=== PATIENT | female | born 1950 | race Caucasian/White ===

== ENCOUNTER 2024-02-15 18:57 | Inpatient (IN) | payer MEDICARE, BC ==
[~2024-02-15] VITALS: Ht 160 cm; Wt 95.3 kg
[2024-02-15] MEDS ORDERED: LISI20TA30 PO (19:17)
[2024-02-15] MEDS ORDERED: BIMA2.5D5 EACHEYE (19:17)
[2024-02-15] MEDS ORDERED: CABE0.5T2 PO (19:17)
[2024-02-15] MEDS ORDERED: ACET325T53 PO (19:17)
[2024-02-15] MEDS ORDERED: DIVA250T4 PO (19:17)
[2024-02-15] MEDS ORDERED: MAGN500T3 PO (19:17)
[2024-02-15] MEDS ORDERED: CHOL10005 PO (19:17)
[2024-02-15] MEDS ORDERED: METO-357 PO (19:17)
[2024-02-15 19:45] LABS: *BILIRUBIN,URIN NEGATIVE (NEGATIVE); *BLOOD, URINE NEGATIVE (NEGATIVE); *CLARITY,URINE CLEAR (CLEAR); *COLOR,URINE YELLOW (YELLOW); *KETONES,URINE NEGATIVE (NEGATIVE); *PROTEIN,URINE NEGATIVE (NEGATIVE); *UROBILINOGEN,URINE 0.2 E.U./dl (NORMAL); LEUKOCYTE ESTERASE ,URINE TRACE (NEGATIVE); NITRITE, URINE NEGATIVE (NEGATIVE); UGLUCOSE NEGATIVE (NEGATIVE)
[2024-02-15 20:03] LABS: BACTERIA,URINE NONE SEEN /HPF (NONE SEEN); RBC,URINE NONE SEEN /HPF (0-3); SQUAMOUS EPITHELIAL CELL,UR FEW /HPF (NONE SEEN)
[2024-02-15] MEDS ORDERED: ACETAMINOPHEN 325 MG TABLET PO PRN (21:30)
[2024-02-15] MEDS ORDERED: MAGNESIUM HYDROXIDE 30 ML LIQUID UDC PO PRN (21:30)
[2024-02-15] MEDS ORDERED: TEMAZEPAM 7.5 MG CAPSULE PO PRN ×2 (21:30)
[2024-02-15] MEDS ORDERED: CLONAZEPAM 0.5 MG TABLET PO PRN ×2 (21:30)
[2024-02-15] MEDS: BLOOD SUGAR DIAGNOSTIC 1 EACH STRIP VI ONE (22:06)
[2024-02-16 08:02] VITALS: BP 152/73; TEMP 98; O2SAT 98
[2024-02-16] MEDS ORDERED: TEMAZEPAM 7.5 MG CAPSULE PO PRN (08:15)
[2024-02-16] MEDS ORDERED: CLONAZEPAM 0.5 MG TABLET PO PRN (08:15)
[2024-02-16] MEDS: CHOLECALCIFEROL 1,000 UNIT TABLET PO SCH (08:49)
[2024-02-16] MEDS: LISINOPRIL 20 MG TABLET PO SCH (08:50)
[2024-02-16] MEDS: METOPROLOL SUCCINATE XL 50 MG TAB.SR.24H PO SCH (08:50)
[2024-02-16] MEDS: DIVALPROEX 250 MG TABLET.DR PO SCH (09:00)
[2024-02-16 10:05] LABS: CALCIUM 9.6 mg/dL (8.5-10.1); CARBON DIOXIDE 24 mmol/L (21-32); CHLORIDE 107 mmol/L (98-107); CREATININE 0.8 mg/dL (0.6-1.3); GLUCOSE 104 mg/dL (74-106); POTASSIUM 4.2 mmol/L (3.5-5.1); SODIUM SERUM 141 mmol/L (136-145); UREA NITROGEN, BLOOD 16 mg/dL (7-18)
[2024-02-16 15:08] VITALS: BP 159/79; TEMP 98; O2SAT 98
[2024-02-16 19:56] VITALS: BP 147/78; TEMP 97.9; O2SAT 100
[2024-02-16] MEDS: LATANOPROST OPHT DROP 2.5 ML BOTTLE EACHEYE SCH (20:38)
[2024-02-16] MEDS: QUETIAPINE FUMARATE 25 MG TABLET PO SCH (20:42)
[2024-02-16] MEDS: MIRTAZAPINE 15 MG TABLET PO SCH (20:42)
[2024-02-16] MEDS ORDERED: LATANOPROST OPHT DROP 2.5 ML BOTTLE EACHEYE SCH (21:00)
[2024-02-17 07:59] VITALS: BP 149/80; TEMP 98.4; O2SAT 98
[2024-02-17] MEDS: CABERGOLINE 0.5 MG PO SCH (09:00)
[2024-02-17 15:00] VITALS: BP_SYST 146; BP_SYST 150; BP_DIAS 76; BP_DIAS 93; TEMP 98; TEMP 98.1; O2SAT 98; O2SAT 99
[2024-02-17 20:19] VITALS: BP 146/76; TEMP 98.1; O2SAT 99
[2024-02-17] MEDS: TEMAZEPAM 7.5 MG CAPSULE PO PRN (23:14)
[2024-02-18 08:20] VITALS: BP 116/75; TEMP 98.1; O2SAT 98
[2024-02-18 17:00] VITALS: BP 111/54; TEMP 98; O2SAT 97
[2024-02-18 21:30] VITALS: BP 136/67; TEMP 98; O2SAT 100
[2024-02-19 08:11] VITALS: BP 139/55; TEMP 97.8; O2SAT 99
[2024-02-19 16:38] VITALS: BP 151/65; TEMP 98; O2SAT 99
[2024-02-19 20:06] VITALS: BP 109/72; TEMP 98.1; O2SAT 98
[2024-02-20 08:16] VITALS: BP 125/52; TEMP 97.7; O2SAT 99
[2024-02-20 16:27] VITALS: BP 138/62; TEMP 97.9; O2SAT 99
[2024-02-20] MEDS: QUETIAPINE FUMARATE 25 MG TABLET PO SCH (20:13)
[2024-02-20 20:14] VITALS: BP 126/64; TEMP 98; O2SAT 98
[2024-02-21 08:31] VITALS: BP 127/73; TEMP 98; O2SAT 98
[2024-02-21 15:04] VITALS: BP 165/68; TEMP 98.2; O2SAT 100
[2024-02-21 19:56] VITALS: BP 153/63; TEMP 98.1; O2SAT 99
[2024-02-21] MEDS: ATORVASTATIN 20 MG TABLET PO SCH (20:23)
[2024-02-22 07:43] VITALS: BP 125/75; TEMP 98; O2SAT 98
[2024-02-22 16:02] VITALS: BP 146/66; TEMP 98; O2SAT 97
[2024-02-22 20:00] VITALS: BP 150/65; TEMP 97.8; O2SAT 95
[2024-02-23 07:54] VITALS: BP 160/89; TEMP 98; O2SAT 98
[2024-02-23 15:31] VITALS: BP 112/88; TEMP 97.8; O2SAT 98
[2024-02-23 20:00] VITALS: BP 150/58; TEMP 97.6; O2SAT 97
[2024-02-24] MEDS ORDERED: DIVALPROEX 250 MG TABLET.DR PO SCH (07:30)
[2024-02-24 07:52] VITALS: BP 157/79; TEMP 98; O2SAT 98
[2024-02-24] MEDS: DIVALPROEX 500 MG TABLET.DR PO SCH (09:23)
[2024-02-24] MEDS: LISINOPRIL 20 MG TABLET PO SCH (09:24)
[2024-02-24 15:52] VITALS: BP 153/58; TEMP 97.8; O2SAT 98
[2024-02-24 19:56] VITALS: BP 98/78; TEMP 97.5; O2SAT 98
[2024-02-25 07:44] VITALS: BP 130/81; TEMP 98.2; O2SAT 98
[2024-02-25 14:15] LABS: CALCIUM 9.6 mg/dL (8.5-10.1); CARBON DIOXIDE 30 mmol/L (21-32); CHLORIDE 104 mmol/L (98-107); CREATININE 0.8 mg/dL (0.6-1.3); GLUCOSE 84 mg/dL (74-106); MAGNESIUM 2.6 mg/dL (1.8-2.4); POTASSIUM 4.7 mmol/L (3.5-5.1); SODIUM SERUM 137 mmol/L (136-145); UREA NITROGEN, BLOOD 18 mg/dL (7-18)
[2024-02-25 16:17] VITALS: BP_SYST 118; BP_SYST 128; BP_DIAS 64; BP_DIAS 77; TEMP 98; O2SAT 98
[2024-02-25 20:01] VITALS: BP 123/66; TEMP 98; O2SAT 98
[2024-02-26 07:58] VITALS: BP 150/73; TEMP 97.6; O2SAT 95
[2024-02-26 15:30] VITALS: BP 140/65; TEMP 97.7; O2SAT 98
[2024-02-26 20:08] VITALS: BP 140/54; TEMP 98.1; O2SAT 97
[2024-02-27 08:06] VITALS: BP 143/83; TEMP 98.1; O2SAT 97
[2024-02-27 15:54] VITALS: BP 120/82; TEMP 98.1; O2SAT 97
[2024-02-27 19:52] VITALS: BP 157/58; TEMP 98; O2SAT 95
[2024-02-28 07:45] VITALS: BP 136/82; TEMP 98; O2SAT 98
[2024-02-28 15:14] VITALS: BP 136/61; TEMP 98; O2SAT 99
[2024-02-28 19:51] VITALS: BP 165/72; TEMP 98.1; O2SAT 97
[2024-02-28] MEDS: CLONAZEPAM 0.5 MG TABLET PO PRN (23:50)
[2024-02-28] MEDS: MAG HYDROX/AL HYDROX/SIMETH 30 ML LIQUID UDC PO PRN (23:51)
[2024-02-29 08:17] VITALS: BP 143/84; TEMP 98; O2SAT 99
[2024-02-29 15:18] VITALS: BP 141/80; TEMP 98; O2SAT 99
[2024-02-29 20:00] VITALS: BP 157/77; TEMP 97.5; O2SAT 99
[2024-03-01 08:04] LABS: BASOPHILS # (AUTO) 0.1 K/UL (0.0-0.2); BASOPHILS % (AUTO) 0.6 % (0.0-2.0); EOSINOPHILS # (AUTO) 0.2 K/uL (0.0-0.7); EOSINOPHILS % (AUTO) 1.4 % (0.0-7.0); HEMATOCRIT 50.7 % (31.2-41.9); HEMOGLOBIN 16.4 g/dL (10.9-14.3); LYMPHOCYTES # (AUTO) 1.9 K/uL (0.8-4.8); LYMPHOCYTES % (AUTO) 15.6 % (20.5-51.5); MEAN CORPUSCULAR HEMOGLOBIN 31.6 uug (24.7-32.8); MEAN CORPUSCULAR HGB CONC 32 g/dL (32.3-35.6); MEAN CORPUSCULAR VOLUME 97.9 fL (75.5-95.3); NEUTROPHILS % (AUTO) 74.4 % (38.5-71.5); PLATELET COUNT (AUTO) 259 K/uL (179-408); RED BLOOD CELL COUNT(AUTO) 5.18 MIL/uL (3.63-4.92); RED CELL DISTRIBUTION WIDTH 14.5 % (12.3-17.7); WHITE BLOOD COUNT (AUTO) 12.1 K/uL (3.8-11.8)
[2024-03-01 08:15] VITALS: BP 137/92; TEMP 98; O2SAT 98
[2024-03-01 08:17] LABS: DIFFERENTIAL COMMENT 1
[2024-03-01 08:55] LABS: ALBUMIN 3.2 g/dL (3.4-5.0); ALKALINE PHOSPHATASE 115 U/L (50-136); ASPARTATE AMINOTRANSFERASE 16 U/L (15-37); BILIRUBIN,TOTAL 0.4 mg/dL (0.2-1.0); CALCIUM 9.7 mg/dL (8.5-10.1); CARBON DIOXIDE 29 mmol/L (21-32); CHLORIDE 104 mmol/L (98-107); CREATININE 0.7 mg/dL (0.6-1.3); GLUCOSE 77 mg/dL (74-106); MAGNESIUM 2.5 mg/dL (1.8-2.4); PHOSPHOROUS 3.6 mg/dL (2.5-4.9); POTASSIUM 4.6 mmol/L (3.5-5.1); SODIUM SERUM 138 mmol/L (136-145); TOTAL PROTEIN, SERUM 7.4 g/dL (6.4-8.2); UREA NITROGEN, BLOOD 17 mg/dL (7-18)
[2024-03-01 09:20] LABS: ALANINE AMINOTRANSFERASE 29 U/L (14-59)
[2024-03-01 09:51] LABS: THYROID STIMULATING HORMONE 0.869 mIU/mL (0.358-3.740)
[2024-03-01 15:33] VITALS: BP 141/69; TEMP 98; O2SAT 99
[2024-03-01 20:00] VITALS: BP 148/61; TEMP 97.7; O2SAT 95
[2024-03-02 08:08] VITALS: BP 149/84; TEMP 98; O2SAT 98
[2024-03-02 08:50] LABS: BASOPHILS # (AUTO) 0.1 K/UL (0.0-0.2); BASOPHILS % (AUTO) 0.6 % (0.0-2.0); EOSINOPHILS # (AUTO) 0.3 K/uL (0.0-0.7); HEMATOCRIT 45.1 % (31.2-41.9); HEMOGLOBIN 14.7 g/dL (10.9-14.3); LYMPHOCYTES # (AUTO) 1.5 K/uL (0.8-4.8); LYMPHOCYTES % (AUTO) 11.6 % (20.5-51.5); MEAN CORPUSCULAR HEMOGLOBIN 31.9 uug (24.7-32.8); MEAN CORPUSCULAR HGB CONC 33 g/dL (32.3-35.6); MEAN CORPUSCULAR VOLUME 97.4 fL (75.5-95.3); MONOCYTES # (AUTO) 1.1 K/uL (0.1-1.30); MONOCYTES % (AUTO) 8.4 % (0.0-11.0); NEUTROPHILS # (AUTO) 10.2 K/uL (1.8-8.9); NEUTROPHILS % (AUTO) 77.4 % (38.5-71.5); PLATELET COUNT (AUTO) 262 K/uL (179-408); RED BLOOD CELL COUNT(AUTO) 4.63 MIL/uL (3.63-4.92); RED CELL DISTRIBUTION WIDTH 14.7 % (12.3-17.7); WHITE BLOOD COUNT (AUTO) 13.2 K/uL (3.8-11.8)
[2024-03-02 08:55] LABS: DIFFERENTIAL COMMENT 1
[2024-03-02 15:05] VITALS: BP 107/53; TEMP 98; O2SAT 96
[2024-03-02 18:29] LABS: EOSINOPHILS % (MANUAL) 1 % (0-8); LYMPHOCYTES % (MANUAL) 13 % (20-40); MONOCYTES % (MANUAL) 7 % (2-10); NEUTROPHILS % (MANUAL) 79 % (42-75)
[2024-03-02 18:30] LABS: PLATELET ESTIMATE ADEQUATE
[2024-03-02 18:31] LABS: ANISOCYTOSIS 1+; OVALOCYTES OCC; TEAR DROP CELLS 1+
[2024-03-02 20:00] VITALS: BP 129/77; TEMP 98; O2SAT 97
[2024-03-03 07:52] VITALS: BP 141/71; TEMP 97.9; O2SAT 99
[2024-03-03 16:27] VITALS: BP 122/70; TEMP 98; O2SAT 99
[2024-03-03 20:00] VITALS: BP 153/66; TEMP 97.7; O2SAT 99
[2024-03-03 22:53] LABS: *BILIRUBIN,URIN NEGATIVE (NEGATIVE); *BLOOD, URINE NEGATIVE (NEGATIVE); *COLOR,URINE YELLOW (YELLOW); *KETONES,URINE 1+ (NEGATIVE); *PROTEIN,URINE NEGATIVE (NEGATIVE); *UROBILINOGEN,URINE 0.2 E.U./dl (NORMAL); LEUKOCYTE ESTERASE ,URINE 1+ (NEGATIVE); NITRITE, URINE NEGATIVE (NEGATIVE); UGLUCOSE NEGATIVE (NEGATIVE)
[2024-03-03 22:54] LABS: *CLARITY,URINE SLIGHTLY CLOUDY (CLEAR)
[2024-03-03 23:06] LABS: BACTERIA,URINE NONE SEEN /HPF (NONE SEEN); RBC,URINE 0-3 /HPF (0-3); SQUAMOUS EPITHELIAL CELL,UR MODERATE /HPF (NONE SEEN)
[2024-03-03 23:09] LABS: URINE AMORPHOUS PHOSPHATES MODERATE /HPF
[2024-03-04 08:32] VITALS: BP 127/79; TEMP 98.4; O2SAT 99
[2024-03-04 16:27] VITALS: BP 131/66; TEMP 98.3; O2SAT 98
[2024-03-04 21:36] VITALS: BP 133/70; TEMP 98; O2SAT 98
[2024-03-05 08:36] VITALS: BP 154/63; TEMP 98.1; O2SAT 98
[2024-03-05 16:17] VITALS: BP 172/71; TEMP 98; O2SAT 98
[2024-03-05 19:46] VITALS: BP 153/72; TEMP 98.1; O2SAT 98
[2024-03-05] MEDS: CEphaleXIN 500 MG CAPSULE PO SCH (23:03)
[2024-03-06 08:15] VITALS: BP 146/71; TEMP 98; O2SAT 98
[2024-03-06 14:23] VITALS: BP 148/52; TEMP 98; O2SAT 99
[2024-03-06 19:44] VITALS: BP 144/65; TEMP 98.1; O2SAT 95
[2024-03-07 08:02] VITALS: BP 149/70; TEMP 98; O2SAT 96; O2SAT 98
[2024-03-07 08:37] VITALS: BP 149/70
== END 2024-03-07 12:02 | DRG 885 ==
LOC: ER 19:00 → GPS 21:16
PROVIDERS: ADMIT Psychiatry & Neurology Psychiatry; ATTEND Nurse Practitioner Acute Care
DX: F33.3 Major depressive disorder, recurrent, severe with psychotic symptoms (principal); D68.59 Other primary thrombophilia; E44.0 Moderate protein-calorie malnutrition; N39.0 Urinary tract infection, site not specified; F41.9 Anxiety disorder, unspecified; E66.01 Morbid (severe) obesity due to excess calories; Z71.3 Dietary counseling and surveillance; E78.5 Hyperlipidemia, unspecified; E88.09 Other disorders of plasma-protein metabolism, not elsewhere classified; Z91.041 Radiographic dye allergy status; Z91.013 Allergy to seafood; Z79.899 Other long term (current) drug therapy; I10 Essential (primary) hypertension; Z91.81 History of falling; Z68.36 Body mass index [BMI] 36.0-36.9, adult; D72.829 Elevated white blood cell count, unspecified; R41.9 Unspecified symptoms and signs involving cognitive functions and awareness
CPT/HCPCS: 36415; 70030-TC; 71045; 80164; 83735; 84100; 84443; 85025; J3490